=== PATIENT | female | born 1965 | race Caucasian/White ===

== ENCOUNTER 2018-01-07 11:52 | Emergency (ER) | payer BC, OTHER ==
[2018-01-07 12:14] VITALS: BP 155/79; PULSE 68; TEMP 97.9; BMI 20.6
--- NOTE | 2018-01-07 12:52 | PDOC ---
History of Present Illness - General Chief Complaint: Hemorrhoids Stated Complaint: RECTAL BLEED Time Seen by Provider: 01/07/18 12:10 History Source: Patient Exam Limitations: No Limitations - History of Present Illness Initial Comments: 01/07/18 12:47 Patient is a 52F with history of hemorrhoids, HTN and pericarditis in 2013 here today complaining of bright red blood per rectum during a bowel movement. She denies pain, but says that she frequently has issues with blood on her stool during defecation. She reports having some issues with constipation and straining during her last few bowel movements. She denies chest pain, shortness of breath, and weakness, but she says that she feels lightheaded and is due to have her blood levels checked.. She states that she has multiple life stressors right now regarding her living situation, as she is facing a possible eviction. She denies SI/HI. Denies history of diverticulosis and diverticulitis. She reports having a normal colonoscopy a few years ago. PCP: Dr Yee Past History - Past Medical History Allergies/Adverse Reactions: Allergies Allergy/AdvReac Type Severity Reaction Status Date / Time No Known Allergies Allergy Verified 01/07/18 12:24 Home Medications: Ambulatory Orders Lisinopril [Prinivil -] 5 mg PO DAILY 03/28/14 Aspirin [ASA -] 81 mg PO DAILY 04/27/15 Carvedilol [Coreg -] 6.25 mg PO DAILY 01/07/18 Cardiac Disorders: Yes (CARDITIS) COPD: No DVT: No HTN: Yes - Immunization History Immunization Up to Date: Yes - Suicide/Smoking/Psychosocial Hx Smoking History: Former smoker Have you smoked in the past 12 months: No Number of Cigarettes Smoked Daily: 0 If you are a former smoker, when did you quit?: 2006 Information on smoking cessation initiated: No Hx Alcohol Use: No Drug/Substance Use Hx: No Substance Use Type: None Hx Substance Use Treatment: No Review of Systems - Review of Systems Comments:: 01/07/18 12:50 GENERAL/CONSTITUTIONAL: No fever or chills. No weakness HEAD, EYES, EARS, NOSE AND THROAT: No change in vision. No sore throat. CARDIOVASCULAR: No chest pain or shortness of breath RESPIRATORY: No cough, wheezing, or hemoptysis. GASTROINTESTINAL: No nausea, vomiting, diarrhea or constipation. GENITOURINARY: No dysuria, frequency, or change in urination. MUSCULOSKELETAL: No joint or muscle swelling or pain. No neck or back pain. SKIN: No rash NEUROLOGIC: No headache, vertigo, loss of consciousness, or change in strength/ sensation. ENDOCRINE: No increased thirst. No abnormal weight change HEMATOLOGIC/LYMPHATIC: No anemia or history of blood clots. ALLERGIC/IMMUNOLOGIC: No hives or skin allergy. *Physical Exam - Vital Signs Last Vital Signs Temp Pulse Resp BP Pulse Ox 97.9 F 68 16 155/79 98 01/07/18 12:10 01/07/18 12:10 01/07/18 12:10 01/07/18 12:10 01/07/18 12:10 - Physical Exam Comments: 01/07/18 12:52 GENERAL: Awake, alert, and fully oriented, in no acute distress RECTAL: Hemorrhoids at 12 and 6 o'clock, not thrombosed, nontender, no nannette blood or other masses appreciated on exam HEAD: No signs of trauma, normocephalic, atraumatic EYES: PERRLA, EOMI, sclera anicteric, conjunctiva clear ENT: Auricles normal inspection, hearing grossly normal, nares patent, oropharynx clear without exudates. Moist mucosa LUNGS: No distress, speaks full sentences, clear to auscultation bilaterally HEART: Regular rate and rhythm, normal S1 and S2, no murmurs, rubs or gallops, peripheral pulses normal and equal bilaterally. ABDOMEN: Soft, nontender, normoactive bowel sounds. No guarding, no rebound. No masses EXTREMITIES: Normal inspection, Normal range of motion, no edema. No clubbing or cyanosis. NEUROLOGICAL: Cranial nerves II through XII grossly intact. Normal speech, normal gait, no focal sensorimotor deficits SKIN: Warm, Dry, normal turgor, no rashes or lesions noted. ED Treatment Course - LABORATORY CBC & Chemistry Diagram: 01/07/18 12:55 Medical Decision Making - Medical Decision Making 01/07/18 12:54 52F with history of hemorrhoids, pericarditis and HTN here today with rectal bleed. Vital signs stable and normal. Believe patient is most likely anxious due to blood in stool and social stressors. Believe bleeding is due to hemorrhoids, considered diverticular bleed but do not feel that this is likely. Will check CBC and send home if stable. 01/07/18 13:34 Laboratory Tests 01/07/18 12:55 WBC 7.3 Hgb 14.7 Hct 44.4 Plt Count 295 CBC normal. Will discharge with instructions to follow up with her PCP. *DC/Admit/Observation/Transfer Diagnosis at time of Disposition: Hemorrhoids - Discharge Dispostion Disposition: HOME Condition at time of disposition: Good Admit: No - Referrals Referrals: Bahman Zuniga MD [Primary Care Provider] - - Patient Instructions Printed Discharge Instructions: DI for Hemorrhoids Additional Instructions: You were seen in the ED today for hemorrhoids. Please return if you have any worsening, concerning or new symptoms. Please follow up with your primary care physician. Please try taking colace, which is available over the counter, to help soften your stools until you see your PCP. - Post Discharge Activity
--- NOTE | 2018-01-07 13:25 | PDOC ---
Attending Attestation - Resident Resident Name: Ricardo Del Real - ED Attending Attestation I have performed the following: I have examined & evaluated the patient, The case was reviewed & discussed with the resident, I agree w/resident's findings & plan, Exceptions are as noted - HPI HPI: 01/07/18 13:23 52-year-old female with history of hemorrhoids presents with bright red blood per rectum with bowel movements 2 episodes over 2 days. No abdominal pain, brown stool with streaks of blood, slightly increased blood yesterday so she presents today for evaluation. No chest pain or syncope, questionable lightheadedness but she attributed to anxiety from life stressors. Takes aspirin daily, no other blood thinners. Had a normal colonoscopy 2 years ago and does not know of any diagnosis of diverticulosis. - Physicial Exam PE: 01/07/18 13:24 Hemodynamically stable No jaundice or pallor Abdomen is benign, stool is brown - Medical Decision Making 01/07/18 13:24 Patient seen and evaluated with the resident. I agree with the overall evaluation, assessment, and management with the following summary of visit: 52-year-old female with bright red blood per rectum with bowel movements, low volume and with benign abdominal exam and hemodynamically stable. Presentation is most consistent with hemorrhoid bleeding, resolved. Will check CBC Discharge to PMD and GI follow-up Recommended stool softeners, high fiber diet
[2018-01-07 13:26] LABS: BASO % 1.3 % (0-2.0); EOS % 10.4 % (0-4.5); HEMATOCRIT 44.4 % (32.4-45.2); HEMOGLOBIN 14.7 GM/dL (10.7-15.3); LYMPH % 48.9 % (8-40); MCH 31.3 pg (25.7-33.7); MCHC 33.1 g/dl (32.0-36.0); MEAN CELL VOLUME 94.4 fl (80-96); MEAN PLT VOLUME 8.5 fl (7.5-11.1); MONO % 7.9 % (3.8-10.2); NEUT % 31.5 % (42.8-82.8); PLATELET COUNT 295 K/MM3 (134-434); RDW 13.2 % (11.6-15.6); WHITE BLOOD COUNT 7.3 K/mm3 (4.0-10.0)
== END 2018-01-07 13:55 | disposition home or self-care (01) ==
LOC: JER 11:52
DX: K64.4 Residual hemorrhoidal skin tags (principal); I10 Essential (primary) hypertension; Z86.79 Personal history of other diseases of the circulatory system
CPT/HCPCS: 36415; 85025; 99283-25

== ENCOUNTER 2018-07-19 18:27 | Observation (INO) | payer BC, OTHER ==
[2018-07-19 18:35] VITALS: BMI 20.9
--- NOTE | 2018-07-19 18:35 | PDOC ---
Rapid Medical Evaluation Chief Complaint: Chest Pain Time Seen by Provider: 07/19/18 18:35 Medical Evaluation: Allergies Allergy/AdvReac Type Severity Reaction Status Date / Time No Known Allergies Allergy Verified 07/19/18 18:30 Vital Signs Temp Pulse Resp BP Pulse Ox 99.0 F 93 H 18 152/112 100 07/19/18 18:31 07/19/18 18:31 07/19/18 18:31 07/19/18 18:31 07/19/18 18:31 07/19/18 18:36 52-year-old female with HTN, pericarditis presenting with CP, SOB, feeling "faint" after walking 3 days ago. None at present. V/s on arrival notable for BP 152/112. Alert, oriented, but slow to respond. Patient is unaccompanied and it is unclear whether this is her baseline. RRR, S1/S2. Lungs CTAB. -EKG -Cardiac labs -CXR -To Main ED for further evaluation. Discharge Disposition - Diagnosis Chest pain - Referrals - Patient Instructions - Post Discharge Activity
[2018-07-19 20:42] LABS: BASO % 0.2 % (0-2.0); EOS % 10.6 % (0-4.5); HEMATOCRIT 43.2 % (32.4-45.2); HEMOGLOBIN 14.7 GM/dL (10.7-15.3); MCH 32.4 pg (25.7-33.7); MCHC 34.1 g/dl (32.0-36.0); MEAN CELL VOLUME 94.8 fl (80-96); MEAN PLT VOLUME 8.4 fl (7.5-11.1); MONO % 8.6 % (3.8-10.2); NEUT % 39.6 % (42.8-82.8); PLATELET COUNT 305 K/MM3 (134-434); RBC 4.56 M/mm3 (3.60-5.2); RDW 12.7 % (11.6-15.6); WHITE BLOOD COUNT 8.8 K/mm3 (4.0-10.0)
--- NOTE | 2018-07-19 20:46 | PDOC ---
History of Present Illness - General Chief Complaint: Chest Pain Stated Complaint: CHEST PAIN Time Seen by Provider: 07/19/18 18:35 History Source: Patient Exam Limitations: No Limitations - History of Present Illness Initial Comments: 07/19/18 20:45 The patient is a 52F with a PMH of HTN and pericarditis who presents to the ER with complaints of fatigue and chest discomfort 3 days ago. The patient states that she was in her normal state of health 3 days ago. She went to go walking with her friend when she began to feel generalized weakness and some mild chest discomfort. She denies SOB, nausea, vomiting, diaphoresis at this time but states that she sat down and felt better. She denies any current CP, SOB, nausea , vomiting, fever, chills. She denies recent travel, surgery, hx of blood clots , hx of cancer, smoking, and OCP use. Past History - Past Medical History Allergies/Adverse Reactions: Allergies Allergy/AdvReac Type Severity Reaction Status Date / Time No Known Allergies Allergy Verified 07/19/18 18:30 Home Medications: Ambulatory Orders Lisinopril [Prinivil -] 5 mg PO DAILY 03/28/14 Aspirin [ASA -] 81 mg PO DAILY 04/27/15 Carvedilol [Coreg -] 6.25 mg PO DAILY 01/07/18 Cardiac Disorders: Yes (MYOCARDITIS) COPD: No DVT: No HTN: Yes - Immunization History Immunization Up to Date: Yes - Suicide/Smoking/Psychosocial Hx Smoking History: Former smoker Have you smoked in the past 12 months: No Number of Cigarettes Smoked Daily: 0 If you are a former smoker, when did you quit?: 2006 Information on smoking cessation initiated: No Hx Alcohol Use: No Drug/Substance Use Hx: No Substance Use Type: None Hx Substance Use Treatment: No *Physical Exam - Vital Signs Last Vital Signs Temp Pulse Resp BP Pulse Ox 99.0 F 93 H 18 152/112 100 07/19/18 18:31 07/19/18 18:31 07/19/18 18:31 07/19/18 18:31 07/19/18 18:31 Heart Score/ECG Review - History History: Moderately suspicious - Electrocardiogram EKG: Non specific repolarization disturbance - Age Age: 45-65 - Risk Factors Risk Factors Heart Score: Yes Hx Hypertension Based on the list above the patient has:: 1-2 risk factors - Troponin Troponin: </= normal limit - Score Heart Score - Total: 4 #1 ECG reviewed & interpreted by me at: 19:13 General ECG Interpretation: Sinus Rhythm, Normal Rate, Normal Intervals, No acute ischemic changes Compared to previous ECG there are: No significant change 07/19/18 22:05 NSR vent rate 75 NM 148 QRS 80 QTc 452 No EMELY. Sub 1mm STD in V5, V6, III, and aVF - unchanged from previous. ED Treatment Course - LABORATORY CBC & Chemistry Diagram: 07/19/18 20:30 07/19/18 20:30 Medical Decision Making - Medical Decision Making 07/19/18 22:02 The patient is a 52F with a PMH of HTN and pericarditis who presents with typical CP that has since resolved. I am suspicious about ACS as the patient gave herself a stress test by walking 1/2 mile then experiencing chest discomfort and fatigue. CBC and CMP including trop negative. EKG unchanged from previous. Low suspicion for PE as pt has no risk factors and 0 Well's. Preliminary read of CXR negative for acute pathology. I have discussed the pt w/ Dr. Zuniga who agrees to obs the patient and he requests the hospitalist team for obs. I have endorsed the pt to Dr. Kruger for obs admission. *DC/Admit/Observation/Transfer Diagnosis at time of Disposition: Chest pain, Fatigue - Discharge Dispostion Condition at time of disposition: Guarded Decision to Admit order: Yes - Referrals Referrals: Bahman Zuniga MD [Primary Care Provider] - - Patient Instructions - Post Discharge Activity
--- NOTE | 2018-07-19 21:01 | PDOC ---
Attending Attestation - HPI HPI: 07/19/18 21:08 The patient is a 52 year old female with a significant PMH of HTN and pericarditis presents to the ER complaining of generalized fatigue and chest discomfort 3 days ago. Patient states that three days ago she was in her usual state of health. Patient reports that she was going on a walk with a friend when she suddenly began experiencing fatigue, mild chest discomfort, and felt like her body was going to give out. Patient notes that her symptoms resolved shortly after sitting down. Patient denies any current symptoms. The patient denies diaphoresis, chest pain, shortness of breath, headache and dizziness. Denies fever, chills, nausea, vomit, diarrhea and constipation. Denies dysuria, frequency, urgency and hematuria. Allergies: NKA Social history: No reported alcohol, drug, or cigarette use. PCP: Dr. Zuniga - Physicial Exam PE: 07/19/18 21:53 GENERAL: Well-appearing, well-nourished. No apparent distress. HEENT: Normocephalic, atraumatic. PERRL, EOM intact. CARDIOVASCULAR: Normal S1, S2. Regular rate and rhythm. PULMONARY: Clear to auscultation bilaterally. ABDOMEN: Soft, non-distended, non-tender. EXTREMITIES: Normal ROM in all four extremities. No gross deformities. SKIN: Warm, dry. No rash NEUROLOGICAL: No focal neurological deficits. <Denice Dimas - Last Filed: 07/19/18 21:53> - Resident Resident Name: Tai Campbell - ED Attending Attestation I have performed the following: I have examined & evaluated the patient, The case was reviewed & discussed with the resident, I agree w/resident's findings & plan, Exceptions are as noted - Medical Decision Making 07/20/18 19:18 Pt was admitted for further evaluation and care <Ajit Mchugh - Last Filed: 07/20/18 19:18>
[2018-07-19 21:04] LABS: ALBUMIN 4.3 g/dl (3.4-5.0); ANION GAP 12 MMOL/L (8-16); BILIRUBIN,TOTAL 0.5 mg/dL (0.2-1.0); BLOOD UREA NITROGEN 18 mg/dL (7-18); CALCIUM 9.1 mg/dL (8.5-10.1); CHLORIDE 109 mmol/L (98-107); CO2 21 mmol/L (21-32); CREATININE 0.9 mg/dL (0.55-1.02); GLUCOSE,RANDOM 119 mg/dL (74-106); POTASSIUM 3.7 mmol/L (3.5-5.1); SGOT/AST 25 U/L (15-37); SGPT/ALT 27 U/L (12-78); SODIUM 142 mmol/L (136-145); TOT PROT 7.6 g/dl (6.4-8.2)
[2018-07-19 21:07] LABS: ALK PHOS 70 U/L (45-117); N-TERMINAL BNP 55.62 pg/ml (5-125)
[2018-07-19 21:14] LABS: INR 1.06 (0.83-1.09)
--- NOTE | 2018-07-19 22:12 | PN ---
Teaching Attending Note Name of Resident: Rebecca Adrian ATTENDING PHYSICIAN STATEMENT I saw and evaluated the patient. I reviewed the resident's note and discussed the case with the resident. I agree with the resident's findings and plan as documented. SUBJECTIVE: Patient is a 52 year old woman with a PMH of HTN and pericarditis who presents to the ER with complaints of fatigue and chest discomfort 3 days ago. The patient states that she was in her normal state of health 3 days ago. She went walking with her friend when she began to feel generalized weakness and some mild chest discomfort. She denies SOB, nausea, vomiting, diaphoresis at this time but states that she sat down and felt better. She denies any current CP, SOB, nausea, vomiting, fever, chills. She denies recent travel, surgery, use of contraceptive pills or history of blood clots. Patient says that in 2013, she had a bout of bronchitis and had a cardiac cath at [facility] where they found that she had pericarditis - did not have chest pain then and has not had any flareups of pericarditis. She is unable to explain how her work up for "bronchitis" ended up including "cardiac cath". OBJECTIVE: Alert Vital Signs Period Temp Pulse Resp BP Sys/Ponce Pulse Ox Last 24 Hr 99.0 F 93 18 152/112 100 HEENT: No Jaundice, eye redness or discharge, PERRLA, EOMI. Normocephalic, atraumatic. External ears are normal and hearing is grossly intact. No nasal discharge. Neck: Supple, nontender. No palpable adenopathy or thyromegaly. No JVD Chest: Good effort. Clear to auscultation and percussion. Heart: Regular. No S3, rub or murmur Abdomen: Not distended, soft, nontender and no HSM. No rebound or guarding. Normoactive bowel sounds. Ext: Peripheral pulses intact. No leg edema. Skin: Warm and dry. No petechiae, rash or ecchymosis. Neuro: Alert. Oriented x3. CN 2-12 grossly intact. Sensation grossly intact in all four extremities and DTR are symmetric. Home Medications Medication Instructions Recorded Lisinopril [Prinivil -] 5 mg PO DAILY 03/28/14 Aspirin [ASA -] 81 mg PO DAILY 04/27/15 Carvedilol [Coreg -] 6.25 mg PO DAILY 01/07/18 Abnormal Lab Results 07/19/18 07/19/18 20:30 20:30 Neutrophils % 39.6 L D Lymphocytes % 41.0 H Eosinophils % 10.6 H Chloride 109 H Random Glucose 119 H ASSESSMENT AND PLAN: 1. Chest pain - Atypical presentation with no ST-T wave changes on EKG, no changes on CXR and normal troponin. Admit as an observation case to telemetry to rule out ACS, consult cardiology, get fasting lipid levels and ECHO. 2. DVT prophylaxis - Lovenox 40 mg SQ q 24 hours. 3. Advance directives - Full code
--- NOTE | 2018-07-20 00:01 | HP ---
CHIEF COMPLAINT: Chest Pain PCP: Dr. Bahman Zuniga Cardiology: Dr. Tadeo White HISTORY OF PRESENT ILLNESS: 52 y/o female with a PMHx of HTN and Pericarditis presents with chest pain. 3 days ago, patient walked 1/2 a mile with sister after eating a sandwich during which she felt fatigued and had to sit down. Her fatigue resolved after a few minutes and she continued walking. The feelings of exhaustion and fatigue have not returned. Since then, she has worked all week and has experienced some intermittent chest pain with light activity (Making the bed, taking out the garbage). She has had chest pain for years but says this pain feels different. It also feels different from the chest pain she experienced with pericarditis. She describes the pain as sharp, stabbing, 5/10, does not radiate to her neck/ jaw/arm. Pain does not change with movement or deep breaths and is not reproducible. Of note, patient says she is anxiety prone and recently has had alot of stress that she did not want to discuss but mentions will resolve. Her Chest pain is not accompanied by SOB, Diaphoresis, nausea, vomiting, palpitations. Denies any recent medications changes or dietary changes (no recent spicy foods). Patient has feelings of dizziness when changing positions; has had this for years (Orthostatic BPs done in the ED: Supine 130/89, Sitting 134/91, Standing 144/108). Additionally, she has been losing sleep for the past year that she attributes to her stress and menopause. 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 [employer] Family History: Mom: HTN, HLD, Breast Ca Dad: DM Allergies No Known Allergies Allergy (Verified 07/19/18 18:30) HOME MEDICATIONS: Home Medications Medication Instructions Recorded Lisinopril [Prinivil -] 5 mg PO DAILY 03/28/14 Aspirin [ASA -] 81 mg PO DAILY 04/27/15 Carvedilol [Coreg -] 6.25 mg PO DAILY 01/07/18 REVIEW OF SYSTEMS CONSTITUTIONAL: Absent: fever, chills, diaphoresis, generalized weakness, malaise, loss of appetite, weight change HEENT: Absent: rhinorrhea, nasal congestion, throat pain, throat swelling, difficulty swallowing, mouth swelling, ear pain, eye pain, visual changes CARDIOVASCULAR: Present: Chest pain Absent: chest pain, syncope, palpitations, irregular heart rate, lightheadedness , peripheral edema RESPIRATORY: Absent: cough, shortness of breath, dyspnea with exertion, orthopnea, wheezing, stridor, hemoptysis GASTROINTESTINAL: Absent: abdominal pain, abdominal distension, nausea, vomiting, diarrhea, constipation, melena, hematochezia GENITOURINARY: Absent: dysuria, frequency, urgency, hesitancy, hematuria, flank pain, genital pain MUSCULOSKELETAL: Absent: myalgia, arthralgia, joint swelling, back pain, neck pain SKIN: Absent: rash, itching, pallor HEMATOLOGIC/IMMUNOLOGIC: Absent: easy bleeding, easy bruising, lymphadenopathy, frequent infections ENDOCRINE: Absent: unexplained weight gain, unexplained weight loss, heat intolerance, cold intolerance NEUROLOGIC: Absent: headache, focal weakness or paresthesias, dizziness, unsteady gait, seizure, mental status changes, bladder or bowel incontinence PSYCHIATRIC: Absent: anxiety, depression, suicidal or homicidal ideation, hallucinations. PHYSICAL EXAMINATION Vital Signs - 24 hr 07/19/18 07/19/18 18:31 23:33 Temperature 99.0 F Pulse Rate 93 H Pulse Rate [ 62 Sitting] Pulse Rate [ 69 Standing] Pulse Rate [ 60 Supine] Respiratory 18 Rate Blood Pressure 152/112 Blood Pressure 139/91 [Sitting] Blood Pressure 144/108 [Standing] Blood Pressure 130/89 [Supine] O2 Sat by Pulse 100 Oximetry (%) GENERAL: Awake, alert, and fully oriented, in no acute distress. EYES: PERRLA, EOMI THROAT: Oropharynx clear without exudates. Moist mucous membranes. NECK: Supple, No JVD, No carotid bruit LUNGS: Breath sounds equal, clear to auscultation bilaterally. No wheezes, no crackles. HEART: Regular rate and rhythm, normal S1 and S2 without murmur ABDOMEN: Soft, nontender, not distended, normoactive bowel sounds, no guarding MUSCULOSKELETAL: No CVA tenderness. EXTREMITIES: 2+ pulses, No calf tenderness. No peripheral edema. NEUROLOGICAL: Cranial nerves II-XII intact. Normal speech. PSYCHIATRIC: Cooperative. Good eye contact. Appropriate mood and affect. SKIN: Warm, dry, no rashes or lesions noted. Laboratory Results - last 24 hr 07/19/18 07/19/18 07/19/18 20:30 20:30 20:30 WBC 8.8 RBC 4.56 Hgb 14.7 Hct 43.2 MCV 94.8 MCH 32.4 MCHC 34.1 RDW 12.7 Plt Count 305 MPV 8.4 Absolute Neuts (auto) 3.5 Neutrophils % 39.6 L D Lymphocytes % 41.0 H Monocytes % 8.6 Eosinophils % 10.6 H Basophils % 0.2 Nucleated RBC % 0 PT with INR 12.00 INR 1.06 Sodium 142 Potassium 3.7 Chloride 109 H Carbon Dioxide 21 Anion Gap 12 BUN 18 Creatinine 0.9 Creat Clearance w eGFR > 60 Random Glucose 119 H Calcium 9.1 Total Bilirubin 0.5 AST 25 ALT 27 Alkaline Phosphatase 70 Creatine Kinase 133 Troponin I < 0.02 B-Natriuretic Peptide 55.62 Total Protein 7.6 Albumin 4.3 Active Medications Enoxaparin Sodium (Lovenox -) 40 mg SQ DAILY MILY ASSESSMENT/PLAN: 52 y/o female with a PMHx of HTN and Pericarditis presents with chest pain and will be observed on telemetry to r/o acs. 1. R/O ACS - Experiencing some intermittent chest pain with light activity, different from her chronic chest pain in the setting of significant recent stress - Troponin < 0.02 X1, Trend Trops ordered - EKG: NSR with nonspecific ST Abnormality, Vent Rate 77, QTc 452 - CXR done, pending official report - Will need Med Rec prior to restarting her home meds - Cardiology (Dr. White) Consulted - Echo ordered - Fasting lipid panel ordered - TSH Ordered 2. HTN - Can restart home meds once reconciled 3. FEN - PO Fluids - Lytes wnl, replete as needed - Sodium controlled diet 4. PPx - DVT: Lovenox 40 mg SQ DAILY Visit type - Emergency Visit Emergency Visit: Yes ED Registration Date: 07/19/18 Care time: The patient presented to the Emergency Department on the above date and was hospitalized for further evaluation of their emergent condition. - New Patient This patient is new to me today: Yes Date on this admission: 07/20/18 - Critical Care Critical Care patient: No Hospitalist Screening - Colonoscopy Questionnaire Colonoscopy Questionnaire: Colonoscopy Questionnaire - Patient: 50 - 75 years old and never had a screening colonoscopy: Unknown History of colon or rectal polyps, or CA: Unknown History of IBD, Crohn's disease or UC: Unknown History of abdominal radiation therapy as a child: Unknown - Relative: 1 with colon or rectal CA, or polyps at age 60 or younger: Unknown Colon or rectal CA diagnosed at age 45 or younger: Unknown Multiple relatives with colon or rectal CA: Unknown - Outcome: Screening Result: Negative Screen
[2018-07-20] MEDS ORDERED: ACETAMINOPHEN 325 MG TABLET (FP) PO ONE (02:00)
[2018-07-20 07:05] LABS: BASO % 1.1 % (0-2.0); EOS % 4.5 % (0-4.5); HEMATOCRIT 41.5 % (32.4-45.2); HEMOGLOBIN 14.4 GM/dL (10.7-15.3); LYMPH % 31.6 % (8-40); MCH 32.6 pg (25.7-33.7); MCHC 34.6 g/dl (32.0-36.0); MEAN PLT VOLUME 8.7 fl (7.5-11.1); MONO % 6.7 % (3.8-10.2); NEUT % 56.1 % (42.8-82.8); PLATELET COUNT 274 K/MM3 (134-434); RBC 4.42 M/mm3 (3.60-5.2); RDW 12.8 % (11.6-15.6); WHITE BLOOD COUNT 5.4 K/mm3 (4.0-10.0)
[2018-07-20 07:50] LABS: CHLORIDE 112 mmol/L (98-107); POTASSIUM 3.7 mmol/L (3.5-5.1); SODIUM 142 mmol/L (136-145)
[2018-07-20 08:01] LABS: ALBUMIN 3.8 g/dl (3.4-5.0); ALK PHOS 62 U/L (45-117); ANION GAP 10 MMOL/L (8-16); BILIRUBIN,TOTAL 0.5 mg/dL (0.2-1.0); BLOOD UREA NITROGEN 13 mg/dL (7-18); CALCIUM 8.6 mg/dL (8.5-10.1); CHOLESTEROL 238 mg/dL (50-200); CO2 20 mmol/L (21-32); CREATININE 0.8 mg/dL (0.55-1.02); GLUCOSE,RANDOM 91 mg/dL (74-106); HDL CHOLESTEROL 59 mg/dL (40-60); MAGNESIUM 2.3 mg/dL (1.8-2.4); PHOSPHOROUS 3.6 mg/dL (2.5-4.9); SGOT/AST 22 U/L (15-37); SGPT/ALT 24 U/L (12-78); TOT PROT 6.9 g/dl (6.4-8.2); TRIGLYCERIDES 90 mg/dL (35-160)
[2018-07-20] MEDS ORDERED: ASPIRIN 81 MG CHEWABLE TABLETS PO SCH (10:00)
[2018-07-20] MEDS ORDERED: CARVEDILOL 6.25 MG TABLET (FP) PO SCH (10:00)
[2018-07-20] MEDS ORDERED: LISINOPRIL 5 MG TABLET (FP) PO SCH (10:00)
[2018-07-20] MEDS ORDERED: ENOXAPARIN NA (PORCINE) 40 MG/0.4 ML DISP.SYRIN SQ SCH (10:00)
--- NOTE | 2018-07-20 10:02 | PN ---
Progress Note (short form) - Note Progress Note: Chief Complaint: Events noted, notes reviewed, vague chest discomfort, exertional dyspnea and fatigue History of Present Illness: Seen and examined on telemetry. Full consult dictated Medications: Current Medications Aspirin (Asa -) 81 mg PO DAILY MILY Carvedilol (Coreg -) 6.25 mg PO BID [facility] Enoxaparin Sodium (Lovenox -) 40 mg SQ DAILY MILY Lisinopril (Prinivil) 5 mg PO DAILY [facility] Review of Systems - Review of Systems Constitutional: denies: Chills or Fever Cardiovascular: As noted above Gastrointestinal: denies: Nausea, Vomiting, Diarrhea, Constipation or Abdominal Pain Genitourinary: No symptoms reported Neurological: No symptoms reported Vital Signs: Last Vital Signs Temp Pulse Resp BP Pulse Ox 97.9 F 63 20 173/88 100 07/20/18 05:30 07/20/18 05:30 07/20/18 05:30 07/20/18 05:30 07/19/18 20:10 Intake & Output 07/17/18 07/18/18 07/19/18 07/20/18 23:59 23:59 23:59 23:59 Intake Total 180 Balance 180 Weight 130 lb 130 lb Neck: Supple Positive JVD No Bruit Respiratory: Clear to A&P Cardiovascular: S1 S2 Regularly Rate and Rhythm Gastrointestinal: Soft Benign Normal Bowel Sounds Ext: Negative Edema Labs: CBC, BMP 07/20/18 05:30 07/20/18 05:30 Troponin, BNP 07/19/18 07/20/18 20:30 02:15 Troponin I < 0.02 0.03 B-Natriuretic Peptide 55.62 Hepatic Panel Total Bilirubin 0.5 mg/dL (0.2-1.0) 07/20/18 05:30 AST 22 U/L (15-37) 07/20/18 05:30 ALT 24 U/L (12-78) 07/20/18 05:30 Alkaline Phosphatase 62 U/L (45-117) 07/20/18 05:30 Albumin 3.8 g/dl (3.4-5.0) 07/20/18 05:30 Assessment/Plan ASSESSMENT: 1. Chest pain syndrome, atypical for CAD angina pectoris 2. Probable diastolic LV dysfunction with clinical class 0 NYHA classification LV failure 3. History of pericarditis 4. HTN 5. Anxiety disorder PLAN: 1. Continue Coreg and titrate as needed and tolerated 2. Continue ACEI and titrate as needed and tolerated 3. Continue ASA 4. Considering patient currently is symptom free with no clinical evidence of ACS and/or CHF, ambulating without limitation to be D/C home and outpatient F/U with Dr. Tadeo Espinosa M.D.
[2018-07-20 10:32] VITALS: BP 138/90; PULSE 69; TEMP 97.5
--- NOTE | 2018-07-20 10:40 | CONS ---
DATE OF CONSULTATION: 07/20/2018 REQUESTING PHYSICIAN: Hospitalist. CHIEF COMPLAINT: Exertional chest heaviness, dyspnea, fatigue, cardiovascular evaluation. This is a 52-year-old female of descent, with known history of pericarditis several years ago, hypertensive cardiovascular disease, who denied diabetes mellitus, hypercholesterolemia, who presented to [facility] with complaint of exertional retrosternal chest heaviness with associated dyspnea and extreme fatigue. The above-noted symptoms were reported 2-3 days prior to the current presentation. On day of presentation, patient was symptom free. Patient did not report any associated diaphoresis. Patient did not report any orthopnea or paroxysmal nocturnal dyspnea. Patient denied any palpitations, dizziness, lightheadedness, or syncope. Patient has been under significant emotional stress recently. PAST MEDICAL HISTORY: Hypertensive cardiovascular disease. SOCIAL HISTORY: Prior history of tobacco abuse. FAMILY HISTORY: No history of premature coronary artery disease. ALLERGIES: None reported. REVIEW OF SYSTEMS: Head and Neck: Denies headache, photophobia, blurring of vision. Respiratory: No cough or sputum production. Cardiovascular: As noted above. Gastrointestinal: Denied nausea, vomiting, diarrhea, abdominal discomfort. Genitourinary: No symptoms reported. PHYSICAL EXAMINATION: Vital Signs: Blood pressure is 173/88 mmHg, pulse rate of 63 beats per minute. Head and Neck: Pupils equal and reactive to light and accommodation. Extraocular muscles are intact. Anicteric sclerae. Negative JVD. No bruit appreciated. Chest: Clear to auscultation and percussion. Cardiovascular: S1, S2. Regular. No murmurs, clicks, or gallops. Abdomen: Soft, benign. Normoactive bowel sounds. Extremities: Negative edema. Intact distal pulses. No calf tenderness. Electrocardiogram revealed sinus rhythm with nonspecific ST-segment abnormality. CBC revealed white cell count 5.4, hemoglobin 14.4, platelet count 274. Basic metabolic profile revealed sodium 142, potassium 3.7, BUN of 13, creatinine 0.8, glucose 91. Troponin less than 0.02. ASSESSMENT: 1. Chest pain syndrome, atypical for coronary artery disease, angina pectoris. Currently asymptomatic. 2. Probable diastolic left ventricular dysfunction with clinical class 0 [place] Heart Association classification left ventricular failure. 3. History of pericarditis. 4. Hypertensive cardiovascular disease, not at goal. 5. Anxiety disorder. RECOMMENDATION: 1. Continuation of Coreg and titration of dosage as needed and as tolerated. 2. Continuation of NORMAN inhibitor therapy and titration of dosage as needed and as tolerated. 3. Continuation of aspirin therapy. 4. Considering patient currently is symptom-free and there is no clinical evidence of acute coronary syndrome and/or congestive heart failure and she is ambulating without any limitation, to be discharged home for additional evaluation on outpatient basis with Dr. Tadeo White. Thank you for the kind referral. CAROL BRANDT M.D. [id number]
--- NOTE | 2018-07-20 11:04 | PN ---
Physical Exam: SUBJECTIVE: Patient seen and examined OBJECTIVE: Vital Signs Period Temp Pulse Resp BP Sys/Ponce Pulse Ox Last 24 Hr 97.5 F-99.0 F 60-93 18-20 130-173/88-112 100-100 GENERAL: The patient is awake, alert, and fully oriented, in no acute distress. HEAD: Normal with no signs of trauma. EYES: PERRL, extraocular movements intact, sclera anicteric, conjunctiva clear. No ptosis. ENT: Ears normal, nares patent, oropharynx clear without exudates, moist mucous membranes. NECK: Trachea midline, full range of motion, supple. LUNGS: Breath sounds equal, clear to auscultation bilaterally, no wheezes, no crackles, no accessory muscle use. HEART: Regular rate and rhythm, S1, S2 without murmur, rub or gallop. ABDOMEN: Soft, nontender, nondistended, normoactive bowel sounds, no guarding, no rebound, no hepatosplenomegaly, no masses. EXTREMITIES: 2+ pulses, warm, well-perfused, no edema. NEUROLOGICAL: Cranial nerves II through XII grossly intact. Normal speech, gait not observed. PSYCH: Normal mood, normal affect. SKIN: Warm, dry, normal turgor, no rashes or lesions noted Laboratory Results - last 24 hr 07/19/18 07/19/18 07/19/18 20:30 20:30 20:30 WBC 8.8 RBC 4.56 Hgb 14.7 Hct 43.2 MCV 94.8 MCH 32.4 MCHC 34.1 RDW 12.7 Plt Count 305 MPV 8.4 Absolute Neuts (auto) 3.5 Neutrophils % 39.6 L D Lymphocytes % 41.0 H Monocytes % 8.6 Eosinophils % 10.6 H Basophils % 0.2 Nucleated RBC % 0 PT with INR 12.00 INR 1.06 Sodium 142 Potassium 3.7 Chloride 109 H Carbon Dioxide 21 Anion Gap 12 BUN 18 Creatinine 0.9 Creat Clearance w eGFR > 60 Random Glucose 119 H Calcium 9.1 Phosphorus Magnesium Total Bilirubin 0.5 AST 25 ALT 27 Alkaline Phosphatase 70 Creatine Kinase 133 Troponin I < 0.02 B-Natriuretic Peptide 55.62 Total Protein 7.6 Albumin 4.3 Triglycerides Cholesterol Total LDL Cholesterol HDL Cholesterol TSH 07/20/18 07/20/18 07/20/18 02:15 05:30 05:30 WBC 5.4 RBC 4.42 Hgb 14.4 Hct 41.5 MCV 94.0 MCH 32.6 MCHC 34.6 RDW 12.8 Plt Count 274 MPV 8.7 Absolute Neuts (auto) 3.0 Neutrophils % 56.1 D Lymphocytes % 31.6 D Monocytes % 6.7 Eosinophils % 4.5 Basophils % 1.1 D Nucleated RBC % 0 PT with INR INR Sodium 142 Potassium 3.7 Chloride 112 H Carbon Dioxide 20 L Anion Gap 10 BUN 13 Creatinine 0.8 Creat Clearance w eGFR > 60 Random Glucose 91 Calcium 8.6 Phosphorus 3.6 Magnesium 2.3 Total Bilirubin 0.5 AST 22 ALT 24 Alkaline Phosphatase 62 Creatine Kinase Troponin I 0.03 B-Natriuretic Peptide Total Protein 6.9 Albumin 3.8 Triglycerides 90 Cholesterol 238 H Total LDL Cholesterol 171 H HDL Cholesterol 59 TSH 1.96 Active Medications Generic Name Dose Route Start Last Admin Trade Name Freq PRN Reason Stop Dose Admin Aspirin 81 mg 07/20/18 10:00 07/20/18 10:43 Asa - PO 81 mg DAILY MILY Administration Carvedilol 6.25 mg 07/20/18 10:00 07/20/18 10:43 Coreg - PO 6.25 mg BID MILY Administration Enoxaparin Sodium 40 mg 07/20/18 10:00 07/20/18 10:43 Lovenox - SQ Not Given DAILY MILY Lisinopril 5 mg 07/20/18 10:00 07/20/18 10:44 Prinivil PO 5 mg DAILY MILY Administration ASSESSMENT/PLAN: Patient presented with chest pain that began three days prior, and fatigue with dizziness. Admitted to rule out acute coronary syndrome. EKG showed NSR with nonspecific ST changes in III, AVF, V5, V6. with rate of 75. Troponins were negative at 0.02, and subsequently 0.03 approx. 6 hours later. Chest X-ray was negative for acute pulmonary disease. TSH was ordered and found to be 1.96. Lipid panel showed TG of 90, LDL 171, cholesterol of 238. Cardiology consult discussed with no acute cardiac evidence of ACS based on EKG, troponins, and physical exam. Patient continued to be free of chest pain, palpitations, or dizziness while in hospital, without any acute complaints. She was ambulating well by herself with stable gait. Patient will continue Coreg 6.25mg BID, Prinivil 5mg QD, and Aspirin 81mg QD. Follow up with floor finisher helper Dr. Cindy Piedra within one week of discharge. Follow up with primary care physician Dr. Bahman Zuniga within one week of discharge.
--- NOTE | 2018-07-20 15:01 | PN ---
Teaching Attending Note Name of Resident: Miguel Rivera ATTENDING PHYSICIAN STATEMENT I saw and evaluated the patient. I reviewed the resident's note and discussed the case with the resident. I agree with the resident's findings and plan as documented. SUBJECTIVE: denies PC . denies SOB. repoerts Cp for a wile , intermittent, lasts for seconds. has lots of stressors lately. cp free now. last CP happened 3 days ago. OBJECTIVE: NAD , looks anxious. CV: RRr, NO MRG lungs: CTAB ext : no edema ASSESSMENT AND PLAN: 52 y/o lady with h/o pericarditis , HTn who presented with L sided CP. 1-atypical CP: no concern for ACS or CAD. EKG reviewed. and trop 0.06 case d/w Dr. Espinosa : no indication for further w/u LDL 171. 10 yr risk per [place] score is 2.5 %. No indication to treat with statin .. life style modification on Asa at home per her PCP 2- h/o HTN: elevated beofre am meds. now controlled cont home meds diso : DC home
--- NOTE | 2018-07-20 19:58 | DS ---
Physical Exam: SUBJECTIVE: Patient seen and examined at bedside in no acute distress. Denies fevers, chills, headache, dizziness, syncope, falls, chest pain, palpitations, abdominal pain, nausea, vomiting, diarrhea. Ambulating freely with stable gait. Denies any acute complaints. OBJECTIVE: Vital Signs Period Temp Pulse Resp BP Sys/Ponce Pulse Ox Last 24 Hr 97.5 F-97.9 F 60-69 18-20 130-173/88-108 99-100 PHYSICAL EXAM GENERAL: The patient is awake, alert, and fully oriented, in no acute distress. HEAD: Normal with no signs of trauma. EYES: PERRL, extraocular movements intact, sclera anicteric, conjunctiva clear. ENT: Ears normal,oropharynx clear without exudates, moist mucous membranes. NECK: Trachea midline, full range of motion, supple. LUNGS: Breath sounds equal, clear to auscultation bilaterally, no wheezes, no crackles, no accessory muscle use. HEART: Regular rate and rhythm, S1, S2 without murmur, rub or gallop. ABDOMEN: Soft, nontender, nondistended, normoactive bowel sounds, no guarding, no rebound, no hepatosplenomegaly. EXTREMITIES: 2+ pulses, warm, well-perfused, no edema. NEUROLOGICAL: Cranial nerves II through XII grossly intact. Normal speech, normal gait. PSYCH: Normal mood, normal affect. SKIN: Warm, dry, normal turgor, no rashes or lesions noted. LABS Laboratory Results - last 24 hr 07/19/18 07/19/18 07/19/18 20:30 20:30 20:30 WBC 8.8 RBC 4.56 Hgb 14.7 Hct 43.2 MCV 94.8 MCH 32.4 MCHC 34.1 RDW 12.7 Plt Count 305 MPV 8.4 Absolute Neuts (auto) 3.5 Neutrophils % 39.6 L D Lymphocytes % 41.0 H Monocytes % 8.6 Eosinophils % 10.6 H Basophils % 0.2 Nucleated RBC % 0 PT with INR 12.00 INR 1.06 Sodium 142 Potassium 3.7 Chloride 109 H Carbon Dioxide 21 Anion Gap 12 BUN 18 Creatinine 0.9 Creat Clearance w eGFR > 60 Random Glucose 119 H Calcium 9.1 Phosphorus Magnesium Total Bilirubin 0.5 AST 25 ALT 27 Alkaline Phosphatase 70 Creatine Kinase 133 Troponin I < 0.02 B-Natriuretic Peptide 55.62 Total Protein 7.6 Albumin 4.3 Triglycerides Cholesterol Total LDL Cholesterol HDL Cholesterol TSH 07/20/18 07/20/18 07/20/18 02:15 05:30 05:30 WBC 5.4 RBC 4.42 Hgb 14.4 Hct 41.5 MCV 94.0 MCH 32.6 MCHC 34.6 RDW 12.8 Plt Count 274 MPV 8.7 Absolute Neuts (auto) 3.0 Neutrophils % 56.1 D Lymphocytes % 31.6 D Monocytes % 6.7 Eosinophils % 4.5 Basophils % 1.1 D Nucleated RBC % 0 PT with INR INR Sodium 142 Potassium 3.7 Chloride 112 H Carbon Dioxide 20 L Anion Gap 10 BUN 13 Creatinine 0.8 Creat Clearance w eGFR > 60 Random Glucose 91 Calcium 8.6 Phosphorus 3.6 Magnesium 2.3 Total Bilirubin 0.5 AST 22 ALT 24 Alkaline Phosphatase 62 Creatine Kinase Troponin I 0.03 B-Natriuretic Peptide Total Protein 6.9 Albumin 3.8 Triglycerides 90 Cholesterol 238 H Total LDL Cholesterol 171 H HDL Cholesterol 59 TSH 1.96 07/20/18 11:15 WBC RBC Hgb Hct MCV MCH MCHC RDW Plt Count MPV Absolute Neuts (auto) Neutrophils % Lymphocytes % Monocytes % Eosinophils % Basophils % Nucleated RBC % PT with INR INR Sodium Potassium Chloride Carbon Dioxide Anion Gap BUN Creatinine Creat Clearance w eGFR Random Glucose Calcium Phosphorus Magnesium Total Bilirubin AST ALT Alkaline Phosphatase Creatine Kinase Troponin I 0.06 H B-Natriuretic Peptide Total Protein Albumin Triglycerides Cholesterol Total LDL Cholesterol HDL Cholesterol TSH HOSPITAL COURSE: Date of Admission:07/19/18 Date of Discharge: 07/20/18 Patient presented with chest pain that began three days prior, and fatigue with dizziness. Admitted to rule out acute coronary syndrome. EKG showed NSR with nonspecific ST changes in III, AVF, V5, V6. with rate of 75. Troponins were negative at 0.02, and subsequently 0.03 approx. 6 hours later. Chest X-ray was negative for acute pulmonary disease. TSH was ordered and found to be 1.96. Lipid panel showed TG of 90, LDL 171, cholesterol of 238. Cardiology consult discussed with no acute cardiac evidence of ACS based on EKG, troponins, and physical exam. Patient continued to be free of chest pain, palpitations, or dizziness while in hospital, without any acute complaints. She was ambulating well by herself with stable gait. Patient will continue Coreg 6.25mg BID, Prinivil 5mg QD, and Aspirin 81mg QD. Follow up with manager assembly Dr. Cindy Piedra within one week of discharge. Follow up with primary care physician Dr. Bahman Zuniga within one week of discharge. Minutes to complete discharge: 30 Discharge Summary Reason For Visit: DIZZINESS, CHEST PAIN Condition: Improved - Instructions Diet, Activity, Other Instructions: You were admitted because of chest pain. You will need to follow up with your primary care physician in 1 week. If you have worsening chest pain, please call your doctor or go to the nearest emergency room. Referrals: Bahman Zuniga MD [Primary Care Provider] - 1 Week Disposition: HOME - Home Medications Comprehensive Discharge Medication List: Ambulatory Orders Lisinopril [Prinivil] 5 mg PO DAILY 03/28/14 Aspirin [ASA -] 81 mg PO DAILY 04/27/15 Carvedilol [Coreg -] 6.25 mg PO BID tablet 07/20/18 Problem List - Problems (1) Chest pain Code(s): R07.9 - CHEST PAIN, UNSPECIFIED This patient is new to me today: Yes Date on this admission: 07/20/18 Emergency Visit: No Critical Care patient: No - Discharge Referral Referred to [facility] No
--- NOTE | 2018-07-21 10:49 | EKG ---
Test Reason : Blood Pressure : / mmHG Vent. Rate : 077 BPM Atrial Rate : 077 BPM P-R Int : 148 ms QRS Dur : 080 ms QT Int : 400 ms P-R-T Axes : 082 079 087 degrees QTc Int : 452 ms NORMAL SINUS RHYTHM NONSPECIFIC ST ABNORMALITY ABNORMAL ECG WHEN COMPARED WITH ECG OF 27-APR-2015 19:54, NO SIGNIFICANT CHANGE WAS FOUND Confirmed by AUBREY CAAL, LEIGH ([id number]) on 07/21/2018 10:48:49 AM Referred By: Confirmed By:LEIGH BURGOS MD
== END 2018-07-20 11:45 | disposition home or self-care (01) ==
LOC: JER 18:27 → JERBED 22:07 → J4W 07-20 00:19
PROVIDERS: ADMIT Internal Medicine; ATTEND Internal Medicine
DX: R07.89 Other chest pain (principal); R53.83 Other fatigue; I10 Essential (primary) hypertension; Z79.82 Long term (current) use of aspirin; Z87.891 Personal history of nicotine dependence; F41.9 Anxiety disorder, unspecified
CPT/HCPCS: 36415; 71046-TC-FY; 80053; 80061; 82550; 83721; 83735; 83880; 84100; 84443; 84484; 85025; 85610; 86618; 93005; 93010; 99285-25; G0378

== ENCOUNTER 2021-09-29 13:24 | Emergency (ER) | payer BC, OTHER ==
[2021-09-29 13:29] VITALS: TEMP 97.6; BMI 20.1
[2021-09-29 17:04] VITALS: BP 151/101; PULSE 58
== END 2021-09-29 17:05 | disposition home or self-care (01) ==
LOC: JER 13:24
DX: I10 Essential (primary) hypertension (principal)
CPT/HCPCS: 99281-25

== ENCOUNTER 2022-09-04 17:47 | Emergency (ER) | payer BC ==
[2022-09-04 18:02] VITALS: PULSE 80; RESP 20; TEMP 98.1; BMI 19.3
[2022-09-04] MEDS ORDERED: ACETAMINOPHEN 1000 MG/100 ML BAG IVPB ONE (19:08)
[2022-09-04 19:35] VITALS: BP 145/96
[2022-09-04 20:53] LABS: BASO % 0.8 % (0-2.0); EOS % 12.3 % (0-4.5); HEMATOCRIT 43.2 % (32.4-45.2); HEMOGLOBIN 14.3 GM/dL (10.7-15.3); LYMPH % 45.7 % (8-40); MCH 31.7 pg (25.7-33.7); MCHC 33.2 g/dl (32.0-36.0); MEAN CELL VOLUME 95.5 fl (80-96); MEAN PLT VOLUME 8.9 fl (7.5-11.1); MONO % 6.9 % (3.8-10.2); NEUT % 34.3 % (42.8-82.8); PLATELET COUNT 328 10^3/uL (134-434); RBC 4.52 M/mm3 (3.60-5.2); RDW 13.4 % (11.6-15.6); WHITE BLOOD COUNT 7.7 K/mm3 (4.0-10.0)
[2022-09-04 21:13] LABS: BLOOD UREA NITROGEN 14.9 mg/dL (7-18); CALCIUM 9.2 mg/dL (8.5-10.1)
[2022-09-04 21:16] LABS: CREATININE 0.7 mg/dL (0.55-1.3)
[2022-09-04 21:18] LABS: BILIRUBIN,TOTAL 0.4 mg/dL (0.2-1); TOT PROT 7.2 g/dl (6.4-8.2)
== END 2022-09-05 01:02 | disposition home or self-care (01) ==
LOC: JER 17:47
DX: R07.9 Chest pain, unspecified (principal)
CPT/HCPCS: 36415; 71046-TC-FY; 80053; 83690; 84484; 85025; 93005; 93010; 99285-25